=== PATIENT | male | born 1975 | race Caucasian/White ===

== ENCOUNTER → 2019-08-04 | Outpatient (CLI) | payer OTHER ==
[2019-08-04 16:58] LABS: CALCIUM 9.2 mg/dL (8.5-10.1); CREATININE 0.9 mg/dL (0.6-1.3); POTASSIUM 3.8 mmol/L (3.5-5.1)
== END ==
LOC: M.LAB 16:03
PROVIDERS: Internal Medicine
DX: I50.22 Chronic systolic (congestive) heart failure (principal)

== ENCOUNTER 2020-03-15 19:33 | Emergency (ER) | payer OTHER ==
[~2020-03-15] VITALS: Ht 182.9 cm; Wt 122.5 kg
[2020-03-15 19:44] VITALS: BP 148/93
[2020-03-15] MEDS ORDERED: COZAAR 25 MG TA25 M1 PO (19:47)
[2020-03-15] MEDS ORDERED: FUROSEMIDE 80 M80 M1 PO (19:47)
[2020-03-15] MEDS ORDERED: XARELTO20 MG PO (19:47)
[2020-03-15] MEDS ORDERED: TOPROL XL100 MG PO (19:48)
[2020-03-15] MEDS ORDERED: DIGITEK250 MC2 PO (19:48)
== END 2020-03-15 21:00 | disposition home or self-care (01) ==
LOC: M.ERS 19:33
DX: J98.8 Other specified respiratory disorders (principal); Z20.828 Contact with and (suspected) exposure to other viral communicable diseases; I48.91 Unspecified atrial fibrillation; Z79.899 Other long term (current) drug therapy

== ENCOUNTER → 2021-05-14 | Outpatient (CLI) | payer OTHER ==
[~2021-05-14] MED LIST: COZAAR 25 MG TA25 M1 PO; DIGITEK250 MC2 PO; FUROSEMIDE 80 M80 M1 PO; TOPROL XL100 MG PO; XARELTO20 MG PO
--- NOTE | 2021-05-14 13:59 | 2DMMODE ---
[place] [address] 2 D/M-MODE ECHOCARDIOGRAM Name: VERONICA DIEGO Room: [facility]#: [id number] Admission: 05/14/21 Attend Phys: Alon Arteaga, Discharge: Date of : 77 Date of Service: 05/14/21 1359 Report #: [id number] THIS REPORT FOR: cc: August Rawls MD, Matthew W. MD Holkins, John M. MD [facility] ~ APPROVED REPORT Study performed: 05/14/2021 09:32:40 EXAM: Comprehensive 2D, Doppler, and color-flow Echocardiogram Patient Location: Out-Patient BSA: 2.40 HR: 92 bpm BP: 142/88 mmHg Rhythm: Atrial Fibrillation Other Information Study Quality: Good Indications Congestive Heart Failure Atrial Fibrillation Cardiomyopathy 2D Dimensions IVSd: 11.51 (7-11mm) LVOT Diam: 20.64 (18-24mm) LVDd: 61.57 mm PWd: 10.78 (7-11mm) Ascending Ao: 31.99 (22-36mm) LVDs: 45.21 (25-40mm) Aortic Root: 34.33 mm Volumes Left Atrial Volume (Systole) LA ESV Index: 34.80 mL/m2 Aortic Valve AoV Peak Arian.: 1.28 m/s AO Peak Gr.: 6.59 mmHg LVOT Max P.33 mmHg AO Mean Gr.: 3.75 mmHg LVOT Mean P.71 mmHg LVOT Max V: 0.91 m/s AO V2 VTI: 21.96 cm LVOT Mean V: 0.61 m/s STEPHANIE (VTI): 2.50 cm2 LVOT V1 VTI: 16.44 [place] [address] 2 D/M-MODE ECHOCARDIOGRAM Name: VERONICA DIEGO Room: [facility]#: [id number] Admission: 05/14/21 Attend Phys: Alon Arteaga, Discharge: Date of : 77 Date of Service: 05/14/21 1359 Report #: [id number] Mitral Valve MV Decel. Time: 141.99 ms MV PHT: 41.18 ms MVA (PHT): 5.34 cm2 TDI Medial E' Arian.: 0.11 m/s Lateral E' Arian.: 0.14 m/s Pulmonary Valve PV Peak Arian.: 0.84 m/s PV Peak Gr.: 2.82 mmHg Left Ventricle The left ventricle is normal size. There is normal LV segmental wall motion. There is normal left ventricular wall thickness. Left ventricular systolic function is mildly decreased. LVEF is 45-50%. This study is not technically sufficient to allow evaluation of the LV diastolic function due to atrial fibrillation. Right Ventricle The right ventricle is normal size. The right ventricular systolic function is normal. Atria Left atrium is mildly dilated. The right atrium size is normal. Aortic Valve The aortic valve is normal in structure. No aortic regurgitation is present. There is no aortic valvular stenosis. Mitral Valve The mitral valve is normal in structure. Mild mitral regurgitation. No evidence of mitral valve stenosis. Tricuspid Valve The tricuspid valve is normal in structure. Mild tricuspid regurgitation. Pulmonic Valve The pulmonary valve is normal in structure. There is no pulmonic valvular regurgitation. Great Vessels The aortic root is normal in size. IVC [place] [address] 2 D/M-MODE ECHOCARDIOGRAM Name: VERONICA DIEGO Room: [facility]#: [id number] Admission: 05/14/21 Attend Phys: Alon Arteaga, Discharge: Date of : 77 Date of Service: 05/14/21 1359 Report #: [id number] collapses >50% with inspiration. Pericardium There is no pericardial effusion. <Conclusion> The left ventricle is normal size. There is normal left ventricular wall thickness. Left ventricular systolic function is mildly decreased. LVEF is 45-50%. This study is not technically sufficient to allow evaluation of the LV diastolic function due to atrial fibrillation. The right ventricle is normal size. Left atrium is mildly dilated. The right atrium size is normal. The aortic valve is normal in structure. The mitral valve is normal in structure. Mild mitral regurgitation. The tricuspid valve is normal in structure. Mild tricuspid regurgitation. IVC is normal in size and collapses >50% with inspiration. There is no pericardial effusion. There is normal LV segmental wall motion. <ELECTRONICALLY SIGNED> By: Curly Fulton MD, [facility] 05/14/21 1359 1359 1359 Curly Fulton MD, FACC /INF
== END ==
LOC: M.CRD 08:00
PROVIDERS: ATTEND Internal Medicine
DX: I08.1 Rheumatic disorders of both mitral and tricuspid valves (principal); I11.0 Hypertensive heart disease with heart failure; I50.22 Chronic systolic (congestive) heart failure; I42.0 Dilated cardiomyopathy; I48.21 Permanent atrial fibrillation